=== PATIENT | female | born 1980 | race Caucasian/White ===

== ENCOUNTER 2016-05-02 14:03 | Inpatient (IN) | payer OTHER ==
[~2016-05-02] VITALS: Ht 157.5 cm; Wt 83.5 kg
[2016-05-02 15:39] LABS: ABSOLUTE BASOPHIL COUNT 0 /CUMM (0.0-0.2); ABSOLUTE EOSINOPHIL COUNT 0.2 /CUMM (0.0-0.7); ABSOLUTE GRANULOCYTE CT 5.1 /CUMM (1.4-6.5); ABSOLUTE LYMPH COUNT 1.5 /CUMM (1.2-3.4); ABSOLUTE MONOCYTE COUNT 0.8 /CUMM (0.10-0.60); BASOPHIL % 0.2 % (0.0-2.0); EOSINOPHIL % 2.1 % (0-5); GRANULOCYTE % 67.8 % (42.2-75.2); HEMATOCRIT 35.4 % (37-47); MEAN CORPUSCULAR HGB 29.2 PG (27.0-31.0); MEAN CORPUSCULAR HGB CONC 33.9 G/DL (33.0-37.0); MEAN CORPUSCULAR VOLUME 86.1 FL (81.0-99.0); MEAN PLATELET VOLUME 8.8 FL (7.4-10.4); PLATELET COUNT 213 /CUMM (130-400); RBC DISTRIBUTION WIDTH 14.9 % (11.5-14.5); RED BLOOD CELL CT 4.11 /CUMM (4.20-5.40); WHITE BLOOD CELL COUNT 7.5 /CUMM (4.8-10.8)
--- NOTE | 2016-05-02 19:28 | History & Physical ---
General Information and HPI MD Statement: I have seen and personally examined DANNIE HARRISON and documented this H&P. The patient is a 36 year old female at [39] weeks and [5] days gestation who presented with a chief complaint of [SPONTANEOUS RUPTURE OF MEMBRANES]. Source of Information: patient Exam Limitations: no limitations History of Present Illness: 36 YEAR OLD @ 39+5 WITH SROM AT 1300 ON 05/02/16. CLEAR FLUID NOTED. 2CM ON INITIAL PRESENTATION. PT CONFIRMED RUPTURED. FHR REASSURING. PT AMBULATED AND SEVERAL HOURS LATER, CTX ARE IRREGULAR, CVX 3CM. REMARKABLE FOR IVF WITH NL ECHO, AMA. 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 UNCOMPLICATED. Past Pregnancies Past Pregnancies: Date of Delivery: 2012 Medical History Blood Transfusion Hx: No Neurological: NONE EENT: NONE Cardiovascular: NONE Respiratory: NONE Gastrointestinal: NONE Hepatic: NONE Renal: NONE Musculoskeletal: H/O ACL REPAIR Psychiatric: NONE Endocrine: NONE Blood Disorders: NONE Cancer(s): NONE GI PHYSICIAN/Reproductive: NONE Surgical History Pertinent Surgical History: ACL REPAIR Past Family/Social History Psychosocial History Smoking Status: Never Smoked Review of Systems Review of Systems Constitutional: Reports: no symptoms. EENTM: Reports: no symptoms. Cardiovascular: Reports: no symptoms. Respiratory: Reports: no symptoms. GI: Reports: no symptoms. Genitourinary: Reports: see HPI. Musculoskeletal: Reports: no symptoms. Skin: Reports: no symptoms. Neurological/Psychological: Reports: no symptoms. Hematologic/Endocrine: Reports: no symptoms. Immunologic/Allergic: Reports: no symptoms. All Other Systems: Reviewed and Negative Exam & Diagnostic Data Last 24 Hrs of Vital Signs/I&O Intake & Output 05/02 1600 05/02 0800 05/02 0000 Intake Total Output Total Balance Patient 184 lb Weight Obstetric Exam Wgt Gained During : 10 Pelvimetry: PROVEN 7'5" Dilation (cm): 3 Effacement (%): 75 Station: -2 Membranes: SROM Fluid: clear Fundal Height (cm): 39 Multiple Gestation? No Contractions: IRREG Infant #1 - FHR Baseline: 120 Category: 1 Estimated Weight: 7LBS Presentation: VTX Patient for Induction? Yes Dupree Score Dupree Score Response Value Cervix Position: posterior 0 Cervix Consistency: soft 2 Cervix Effacement: 60-70% 2 Cervix Dilation: 3-4 cm 2 Total 6 Physical Exam General Appearance Alert, Oriented X3, Cooperative, No Acute Distress Skin No Rashes, No Breakdown, No Significant Lesion HEENT Atraumatic, PERRLA, EOMI Cardiovascular Regular Rate, Normal S1, Normal S2 Lungs Clear to Auscultation, Normal Air Movement Abdomen Normal Bowel Sounds, Soft, No Tenderness, No Hepatospenomegaly, No Masses Neurological Normal Gait, Normal Speech, Strength at 5/5 X4 Ext Extremities No Clubbing, No Cyanosis, No Edema Reproductive (FEMALE) Normal female genitalia Labs Blood Type & Rh: A POS Antibody Screen: NEG Hct/Hgb & Platelets #1: 12.5 39 267 Hct/Hgb & Platelets #2: 9.8 30.8 237 Rubella: IMM VDRL #1: NEG VDRL #2: NEG HbsAg: NEG HIV #1: NEG HIV #2 NEG 1 Hr P Group B Strep: NEG Initial Ultrasound: 11.6 Anatomy Ultrasound: 21.1 NEG ECHO NEG Genetic Testing: CF NEG, NEG SMA, NEG FRAG X PER RMA, DX NEG FOR ANEUPLOIDIES Last 24 Hrs of Labs/Dmitry: Laboratory Tests 05/02/16 1505: CBC w Diff NO MAN DIFF REQ, RBC 4.11 L, MCV 86.1, MCH 29.2, RDW 14.9 H, MPV 8.8, Gran % 67.8, Lymphocytes % 19.6 L, Monocytes % 10.3 H, Eosinophils % 2.1, Basophils % 0.2, Absolute Granulocytes 5.1, Absolute Lymphocytes 1.5, Absolute Monocytes 0.8 H, Absolute Eosinophils 0.2, Absolute Basophils 0, PUBS MCHC 33.9 05/02/16 1500: Urine Color YEL, Urine Clarity HAZY H, Urine pH 6.0, Ur Specific [place] 1.020, Urine Protein TRACE H, Urine Ketones NEG, Urine Nitrite NEG, Urine Bilirubin NEG, Urine Urobilinogen 0.2, Ur Leukocyte Esterase NEG, Ur Microscopic SEDIMENT EXAMINED, Urine RBC 10-15 H, Urine WBC RARE, Ur Epithelial Cells MOD H, Urine Mucus MANY H, Urine Hemoglobin TRACE-INTACT, Urine Glucose NEG Assessment/Plan Assessment/Plan: 36 YEAR OLD FEMALE , IVF , 39+5 WEEKS. SROM @ 1300. OCC CONTRACTIONS. ON INITIAL EXAM 2CM . ON MY EXAM 3CM/POST. REVIEWED PITOCIN AUGMENTATION. R/B/A OF AUGMENTATION WITH DECREASED RISK OF INFECTION VS. OBSERVATION REVIEWED. PT IS AFEBRILE AND WITHOUT UTERINE TENDERNESS. FLUID IS CLEAR. PT DESIRES OBSERVATION OVERNIGHT. FHR TRACING REASSURING. PLAN OBSERVATION AND PITOCIN / EPIDURAL NEEDED. IF NO CHANGE OVERNIGHT, PITOCIN IN AM ADVISED. QUESTIONS ANSWERED. As Ranked By This Provider Problem List: 1. 2. Conceived by in vitro fertilization 3. Spontaneous rupture of membranes Core Measures/Miscellaneous Garzon Catheter Date In: 05/02/16 Venous Thromboembolism VTE Risk Factors: / VTE Contraindications: No Contraindications VTE Prophylaxis Ordered Inpt: Early Ambulation VTE Diagnosis: No Beta Peterson Is Beta Peterson a Home Med? No Antibiotics Is Patient on Antibiotics? No Attending MD Review Statement Attending Statement Attending MD Statement: examined this patient, discussed with family, discussed w/nursing
--- NOTE | 2016-05-02 21:05 | PN- OBGYN ---
Surgical Brief Attending Note Brief Attending Note: notified by RN at 2029 that pt almita more frequently and 3-4 cm. Then at 2049 was 6 cm. Pt now to get epidural VSS FHTs 120-130s Cat 1. occ variables toco - palpates q 2-5min cvx as above 6cm per RN a/p 39+5 weeks . SROM. Active labor. plan epidural. Pitocin if needed. Anticipate .
--- NOTE | 2016-05-02 23:01 | Labor & Delivery Summary ---
Delivery Summary Vaginal Delivery: Vaginal: vertex Episiotomy/Lacerations: Episiotomy/Lacerations: 2ND DEGREE Type: 3-0 Anesthesia: EPIDURAL AND NESACAINE Placenta: Placenta: manual, CORD AVULSED DURING DELIVERY OF PLACENTA. PITOCIN TURNED OFF AFTER AWAITING 30 MIN, PLACENTA NOTED TO BE HALF IN LOWER UTERINE SEGMENT/ CERVIX AND HALF IN VAGINA. MANUAL EXTRACTION PERFORMED. PLACENTA EVALUATED AND NOTED TO BE INTACT. Anesthesia: block Apgars - 1 Min: 9 Apgars - 5 Min: 9 Additional Comments: PT PROGRESSED TO FULLY DILATED AROUND 2136. PUSHED AND DELIVERED HEAD ATRAUMATICALLY. SHOULDERS AND BODY DELIVERED WITHOUT DIFFICULTY. GOOD CRY IMMEDIATELY NOTED AND PLACED ON MATERNAL ABDOMEN. CORD CLAMPED AND CUT. CORD BLOOD BANKING AND CORD SEGMENT OBTAINED. CORD BLOOD OBTAINED. GENTLE TRACTION PLACED ON UMBILICAL CORD, HOWEVER CORD AVULSED. PITOCIN TURNED OFF AND AFTER AWAITING 30 MIN, PLACENTA NOTED TO BE IN LOWER UTERINE SEGMENT/ CERVIX AND VAGINA. MANUAL EXTRACTION PERFORMED. PLACENTA INTACT. 2ND DEGREE REPAIR REPAIRED WITH NESACAINE FOR LOCAL ANESTHETIC. PT TOLERATED WELL.
[2016-05-03 06:26] LABS: ABSOLUTE BASOPHIL COUNT 0 /CUMM (0.0-0.2); ABSOLUTE EOSINOPHIL COUNT 0.1 /CUMM (0.0-0.7); ABSOLUTE GRANULOCYTE CT 8.5 /CUMM (1.4-6.5); ABSOLUTE LYMPH COUNT 1.2 /CUMM (1.2-3.4); ABSOLUTE MONOCYTE COUNT 0.9 /CUMM (0.10-0.60); BASOPHIL % 0.4 % (0.0-2.0); EOSINOPHIL % 0.6 % (0-5); HEMATOCRIT 32.1 % (37-47); MEAN CORPUSCULAR HGB 28.8 PG (27.0-31.0); MEAN CORPUSCULAR HGB CONC 33.3 G/DL (33.0-37.0); MEAN CORPUSCULAR VOLUME 86.6 FL (81.0-99.0); MEAN PLATELET VOLUME 8.8 FL (7.4-10.4); PLATELET COUNT 178 /CUMM (130-400); RED BLOOD CELL CT 3.71 /CUMM (4.20-5.40); WHITE BLOOD CELL COUNT 10.7 /CUMM (4.8-10.8)
--- NOTE | 2016-05-03 08:02 | PN- Post Delivery/GYN ---
Subjective Subjective: Doing well no complaint Review of Systems: neg for cardiac GI, pulmonary complaints Objective Last 24 Hrs of Vital Signs/I&O Afebrile VSS Intake & Output 05/03 0800 05/03 0000 05/02 1600 Intake Total Output Total Balance Patient 184 lb Weight Physical Exam General Appearance Alert, Oriented X3, Cooperative, No Acute Distress Skin No Significant Lesion Cardiovascular Regular Rate Lungs Normal Air Movement Abdomen Normal Bowel Sounds, Soft, No Tenderness, No Hepatospenomegaly, Fundus midline firm nontender 2 to 3 FB below umbilicus Neurological Normal Gait, Normal Speech Extremities No Tenderness/Swelling Reproductive (FEMALE) Normal female genitalia, avge lochia Current Medications: Current Medications Sig/Dieter Start time Last Medication Dose Route Stop Time Status Admin Acetaminophen 650 MG Q4P PRN 05/02 2314 AC PO Chloroprocaine HCl 30 ML ONCE ONE 05/02 2314 DC SC 05/02 2315 Docusate Sodium 100 MG BID PRN 05/02 2314 AC 05/03 PO 0235 Hydroxyzine HCl 50 MG AT BEDTIME NEED.. 05/02 2314 AC PO Hydroxyzine HCl 100 MG ONE TIME PRN 05/02 1944 AC PO Ibuprofen 800 MG Q6P PRN 05/02 2314 AC 05/03 PO 0437 Lactated Ringer's 1,000 ML Q8H 05/02 144 AC IV Magnesium Hydroxide 30 ML DAILY PRN 05/02 2314 AC PO 05/03 1001 Morphine Sulfate 10 MG ONCE PRN 05/02 1944 AC IM Oxycodone/ 1 TAB Q3P PRN 05/02 2314 AC Acetaminophen PO Oxytocin 20 UNITS Q5H 05/02 2314 DC Lactated Ringer's 1,000 ML IV 05/03 0415 Senna 374 MG AT BEDTIME NEED.. 05/02 2314 AC PO 05/03 231 Last 24 Hrs of Labs/Dmitry: Laboratory Tests 05/03/16 0600: CBC w Diff NO MAN DIFF REQ, RBC 3.71 L, MCV 86.6, MCH 28.8, RDW 15.0 H, MPV 8.8, Gran % 79.0 H, Lymphocytes % 11.5 L, Monocytes % 8.5, Eosinophils % 0.6, Basophils % 0.4, Absolute Granulocytes 8.5 H, Absolute Lymphocytes 1.2, Absolute Monocytes 0.9 H, Absolute Eosinophils 0.1, Absolute Basophils 0, PUBS MCHC 33.3 05/02/16 1505: CBC w Diff NO MAN DIFF REQ, RBC 4.11 L, MCV 86.1, MCH 29.2, RDW 14.9 H, MPV 8.8, Gran % 67.8, Lymphocytes % 19.6 L, Monocytes % 10.3 H, Eosinophils % 2.1, Basophils % 0.2, Absolute Granulocytes 5.1, Absolute Lymphocytes 1.5, Absolute Monocytes 0.8 H, Absolute Eosinophils 0.2, Absolute Basophils 0, PUBS MCHC 33.9 05/02/16 1500: Urine Color YEL, Urine Clarity HAZY H, Urine pH 6.0, Ur Specific [place] 1.020, Urine Protein TRACE H, Urine Ketones NEG, Urine Nitrite NEG, Urine Bilirubin NEG, Urine Urobilinogen 0.2, Ur Leukocyte Esterase NEG, Ur Microscopic SEDIMENT EXAMINED, Urine RBC 10-15 H, Urine WBC RARE, Ur Epithelial Cells MOD H, Urine Mucus MANY H, Urine Hemoglobin TRACE-INTACT, Urine Glucose NEG Assessment/Plan Assessment/Plan Stable PPD #1 Routine PPcare Problem List: 1. 2. Conceived by in vitro fertilization 3. Spontaneous rupture of membranes 4. Term of female Attending MD Review Statement Attending Statement Attending MD Statement: examined this patient, discussed with family, discussed with nursing Attending Assessment/Plan: Justin Magaña MD
[2016-05-04] MEDS ORDERED: IBUPROFEN800 M1 PO (09:13)
--- NOTE | 2016-05-04 09:33 | PN- OBGYN ---
Surgical Brief Attending Note Brief Attending Note: no complaints. Doing well. +nursing. appropriate lochia. +ambulating, voiding, tolerating pain and po. VSSAF FF@U-1 ext: no calf tenderness, 1+ pedal edema b/l a/p PPD2. Doing well Routine pp care. Discharge to home today. Precautions advised.
== END 2016-05-04 10:35 | DRG 775 ==
LOC: CBCO 14:03 → GNO 14:32 → CBCO 05-04 08:00 → GNO 05-04 10:35
PROVIDERS: ADMIT Obstetrics & Gynecology
PROC: 10E0XZZ Delivery of Products of Conception, External Approach (ICD-10-PCS; principal; 2016-05-02)
PROC: 0HQ9XZZ Repair Perineum Skin, External Approach (ICD-10-PCS; principal; 2016-05-02)
DX: O69.89X0 Labor and delivery complicated by other cord complications, not applicable or unspecified (principal); O70.1 Second degree perineal laceration during delivery; Z3A.39 39 weeks gestation of pregnancy; Z37.0 Single live birth
CPT/HCPCS: GNOP; GNOS; 36415; 81001; 84112; J7120